=== PATIENT | female | born 1980 | race Caucasian/White ===

== ENCOUNTER 2020-03-19 12:25 | Outpatient (CLI) | payer BC ==
[2020-03-19] MEDS ORDERED: NONE PER PT (13:24)
== END 2020-03-19 23:59 | disposition home or self-care (01) ==
LOC: STAR 12:25
PROVIDERS: ATTEND Otolaryngology
DX: Z02.9 Encounter for administrative examinations, unspecified (principal)
CPT/HCPCS: U0001-CS

== ENCOUNTER 2020-03-24 10:13 | Day surgery (SDC) | payer BC ==
[~2020-03-24] VITALS: Ht 175.3 cm; Wt 69.0 kg
[~2020-03-24 10:13] MED LIST: NONE PER PT
[2020-03-24] MEDS ORDERED: LACTATED RINGERS 1,000 ML IV SCH (10:20)
[2020-03-24] MEDS ORDERED: FENTANYL PF 100 MCG/2ML ONE ×2 (10:24→15:08)
[2020-03-24] MEDS ORDERED: MIDAZOLAM 1 MG/ML, 2ML ONE (10:25)
[2020-03-24] MEDS ORDERED: CHLORHEXIDINE 15 ML UDC MM ONE (10:30)
[2020-03-24 10:48] VITALS: BP 116/79
[2020-03-24] MEDS ORDERED: HYDROmorphone 1 MG/ML, 1ML INJ IVPush PRN (11:00)
[2020-03-24] MEDS ORDERED: HYDROcodone/APAP 7.5-325MG/15ML UDC PO PRN (11:00)
[2020-03-24] MEDS ORDERED: OXYcodone 5 MG/5 ML ORAL.SOL UDC PO PRN (11:00)
[2020-03-24] MEDS ORDERED: PROMETHAZINE 25 MG/ML, 1ML IVPush PRN (11:00)
[2020-03-24] MEDS ORDERED: MEPERIDINE/PF 25MG/0.5ML IVPush PRN (11:00)
[2020-03-24 11:04] LABS: HCG UR SG 1.023 (1.003-1.030)
[2020-03-24] MEDS ORDERED: EPINEPHRINE TOPICAL SOLN 1 MG/ML, 30ML ONE (11:12)
[2020-03-24] MEDS ORDERED: OXYMETAZOLINE NASAL SPRAY 0.05%, 15ML ONE (11:12)
[2020-03-24] MEDS ORDERED: BACITRACIN 50,000 UNIT ONE (11:12)
[2020-03-24] MEDS ORDERED: LIDOCAINE 1%-EPI 1:100K, 20ML ONE (11:12)
[2020-03-24] MEDS ORDERED: BACITRACIN OINT 500U/GM, 15 GM ONE (11:12)
[2020-03-24] MEDS ORDERED: FLUORESCEIN SODIUM 500 MG/5 ML ONE (11:12)
[2020-03-24] MEDS ORDERED: SCOPOLAMINE 1MG PATCH TD ONE (12:49)
[2020-03-24] MEDS ORDERED: ONDANSETRON 2MG/ML, 2ML ONE (12:59)
[2020-03-24] MEDS ORDERED: SUCCINYLCHOLINE 20 MG/ML, 10ML ONE (12:59)
[2020-03-24] MEDS ORDERED: GLYCOPYRROLATE 0.2MG/1ML, 5ML ONE (12:59)
[2020-03-24] MEDS ORDERED: CEFAZOLIN 1,000 MG ONE (12:59)
[2020-03-24] MEDS ORDERED: NEOSTIGMINE 1 MG/ML, 10ML ONE (12:59)
[2020-03-24] MEDS ORDERED: PROPOFOL 10 MG/ML, 20ML ONE (12:59)
[2020-03-24] MEDS ORDERED: ROCURONIUM 10 MG/ML,10ML ONE (12:59)
[2020-03-24] MEDS ORDERED: DEXAMETHASONE 4 MG/ML, 1ML ONE (12:59)
[2020-03-24] MEDS ORDERED: SCOPOLAMINE 1MG PATCH TD SCH (13:00)
[2020-03-24] MEDS ORDERED: FLUORESCEIN SODIUM 500 MG/5 ML IV ONE (13:18)
[2020-03-24] MEDS ORDERED: EPINEPHRINE TOPICAL SOLN 1 MG/ML, 30ML TP ONE (13:18)
[2020-03-24] MEDS ORDERED: LIDOCAINE 1%-EPI 1:100K, 20ML INFIL ONE (13:18)
[2020-03-24] MEDS ORDERED: OXYcodone 5 MG/5 ML ORAL.SOL UDC ONE (15:08)
[2020-03-24] MEDS: FENTANYL PF 100 MCG/2ML IV PRN ×3 (15:12→15:34)
[2020-03-24] MEDS ORDERED: MEPERIDINE/PF 25MG/ML,1ML ONE (15:41)
== END 2020-03-24 17:30 | disposition home or self-care (01) ==
LOC: OUT 10:13
PROVIDERS: ATTEND Otolaryngology
DX: J32.2 Chronic ethmoidal sinusitis (principal); Z11.59 Encounter for screening for other viral diseases; J32.4 Chronic pansinusitis; J33.8 Other polyp of sinus; J34.89 Other specified disorders of nose and nasal sinuses; J34.2 Deviated nasal septum; F12.90 Cannabis use, unspecified, uncomplicated; Z88.0 Allergy status to penicillin; Z88.8 Allergy status to other drugs, medicaments and biological substances; Z72.89 Other problems related to lifestyle; Z87.891 Personal history of nicotine dependence; Z82.49 Family history of ischemic heart disease and other diseases of the circulatory system
CPT/HCPCS: 30520; 31240; 31257; 31267; 31276; 81025; 88304; J0330; J0690; J1100; J2175; J2250; J2405; J2704; J2710; J3010; J3490; J7120; U0001

== ENCOUNTER 2020-03-31 06:30 | Day surgery (SDC) | payer BC ==
[~2020-03-31] VITALS: Ht 175.3 cm; Wt 69.0 kg
[2020-03-31] MEDS ORDERED: OXYMETAZOLINE NASAL SPRAY 0.05%, 15ML ONE (06:57)
[2020-03-31 07:38] VITALS: BP 121/83
[2020-03-31] MEDS ORDERED: CHLORHEXIDINE 15 ML UDC MM ONE (08:00)
[2020-03-31] MEDS ORDERED: LACTATED RINGERS 1,000 ML IV SCH (08:05)
== END 2020-03-31 08:57 | disposition home or self-care (01) ==
LOC: OUT 06:30
PROVIDERS: ATTEND Otolaryngology
DX: J33.8 Other polyp of sinus (principal); Z11.59 Encounter for screening for other viral diseases; J32.2 Chronic ethmoidal sinusitis; F17.210 Nicotine dependence, cigarettes, uncomplicated; Z79.899 Other long term (current) drug therapy; Z88.0 Allergy status to penicillin; Z88.8 Allergy status to other drugs, medicaments and biological substances; Z98.890 Other specified postprocedural states
CPT/HCPCS: 31237; 87635; J7120